=== PATIENT | male | born 1950 | race Caucasian/White ===

== ENCOUNTER 2017-05-16 18:01 | Emergency (ER) | payer MEDICARE, OTHER ==
[~2017-05-16] VITALS: Ht 182.9 cm; Wt 106.8 kg
[~2017-05-16 18:01] MED LIST: PREDNISONE 5MG.5 MG
--- OUTSIDE RECORDS SUMMARY | 2017-05-16 18:14 | External Medical Summary Rpt ---
Author Author KRISTI Bell, [employer] Organization [employer] Address Unknown Phone Unavailable
--- OUTSIDE RECORDS SUMMARY | 2017-05-16 18:14 | External Medical Summary Rpt | CCD ---
Author Author [employer] Organization [employer] Address Unknown Phone Unavailable Purpose Continuity of Care Document - through 2016
--- OUTSIDE RECORDS SUMMARY | 2017-05-16 18:14 | External Medical Summary Rpt | CCD ---
Author Author , KRISTI Organization [employer] Address Unknown Phone [email or web address] Providers Care Monotype Operator Name Role Phone Gregory Arellano III, MD, Gregory Hussein III, MD Purpose Continuity of Care Document - 02-21-2013 through 2016 Problems Code Diagnosis DOS Provider Status 883.0 883.0 OPEN 02-21-2013 Douglas WOUND OF [facility] E849.8 E849.8 02-21-[address] [facility] E920.8 E920.8 02-21-2013 Douglas ACC-CUTTING [facility] Allergies, Adverse Reactions, Alerts Type Allergy to substance Adverse Reaction to Substance Substance Reaction Severity NO KNOWN ALLERGIES Unknown Unknown Medications Na ND Rx Da Fi Fi Am Da Di Ph RX Ph St me C No te ll ll ou ys ag ar # ys at rm s nt no ma ic us Or Da si cy ia de te s n re d LI 63 08 0 No DO 32 -2 CA 30 1- Lo IN 20 20 ng E 11 13 er HC 0 L Ac 1% ti ve AL Vital Signs 02-21-2013 17:41 Name Value Interpretat Reference Comment ion Range Body 97.6 [degF] Temperature BP 95 mm[Hg] Diastolic BP Systolic 151 mm[Hg] Heart 68 /min Rate/Pulse O2% 96 % Respiratory 18 /min Rate 02-21-2013 17:36 Name Value Interpretat Reference Comment ion Range Body 97.6 [degF] Temperature BP 95 mm[Hg] Diastolic BP Systolic 151 mm[Hg] Heart 68 /min Rate/Pulse O2% 96 % Respiratory 18 /min Rate Procedures Procedure DOS Code Location Performer Comment CLOSURE 86.59 Gregory SKIN & EAlice SUBCUTANE Jovita GTZ III, MD Encounters Encounter Start End Date Code Location Performer Type Date Emergency UVALDO Hussein (ER) 3 16:43 3 17:47 [facility] Gregory Zuniga
--- OUTSIDE RECORDS SUMMARY | 2017-05-16 18:14 | External Medical Summary Rpt | CCD ---
Author Author , KRISTI Organization [employer] Address Unknown Phone [email or web address] Immunization Name Date Rout CVX Reac Dose Comm Prov Is Faci e tion ent ider Refu lity Give sed n Td 03-1 9 999 Hist H149 No H149 (kathie 0-19 oric lt), 97 al Info adso rmat rbed ion - Sour ce Unsp ecif ied
--- OUTSIDE RECORDS SUMMARY | 2017-05-16 18:14 | External Medical Summary Rpt | CCD ---
Author Author , KRISTI Organization K[employer]ST[employer] Address Unknown Phone [email or web address] Immunization Name Date Rout CVX Reac Dose Comm Prov Is Faci e tion ent ider Refu lity Give sed n Td 03-1 9 999 Hist H149 No H149 (kathie 0-19 oric lt), 97 al Info adso rmat rbed ion - Sour ce Unsp ecif ied
--- OUTSIDE RECORDS SUMMARY | 2017-05-16 18:14 | External Medical Summary Rpt | CCD ---
Author Author , KRISTI Organization [employer] Address Unknown Phone [email or web address] Care Team Providers Care Systems Development Manager Name Role Phone Gregory Arellano III, MD, Gregory Hussein III, MD Purpose Continuity of Care Document - 02-21-2013 through 2016 Problems Code Diagnosis DOS Provider Status 883.0 883.0 OPEN 02-21-2013 Douglas WOUND OF [facility] E849.8 E849.8 02-21-2013 Douglas ACCIDENT IN [facility] E920.8 E920.8 02-21-2013 Douglas ACC-CUTTING [facility] Allergies, Adverse Reactions, Alerts Type Allergy to [...] UVALDO Hussein (ER) 3 16:43 3 17:47 [facility] Gregory Zuniga
--- NOTE | 2017-05-16 19:03 | Urgent Treatment Center Report ---
History of Present Issue Date/Time Seen by Provider 05/16/17 1858 Visit Reason Pt arrived:Walked Presenting Problem:PT STATES HE HAS BEEN VOMITING WITH STOMACH BURNING Location if Accident: Onset of symptoms date/time:05/16/17 or onset unknown for: Have you (or family members/close friends) recently traveled outside the [place]? N If Yes, where/when: Have you had exposure to infectious disease within the past month? TB? Other? Specify: Patient states that he was recenly seen and treated for Sinus infection State that he was started on Augmentin State that he then was started on on Azithromycin also State that he has been having the Diarrhea and vomiting every since Tuesday State that he was not sure if the antibiotic upset his stomach and was making him have V/D or if he may have been exposed to the stomach virus by his grandson. States that just before he vomits he has a burning sensation then he vomits then feels a little better ALLERGIES Coded Allergies: No Known Allergies (05/16/17) Home Medications Reported Medications Prednisone (Prednisone 5MG) History Medical History General Angina: No KS: No Hypertension? No Hyperlipidemia? No CHF? No COPD? No Asthma? No CVA? No Seizures? No Diabetes? No GB Disease: No MRSA? No TB? No Cancer? No Immunization HX DT/Tetanus 1-4 YRS Surgical Hx Previous Surgery?Y Tonsils Social History Smoking Hx Smoker: Never Smoker Tobacco: No Alcohol Alcohol: Yes Review of Systems All Other Systems Reviewed and Negative Gastrointestinal diarrhea, nausea, vomiting Physical Exam Vital Signs Vital Signs Date Time Temp Pulse Resp B/P Pulse O2 O2 Flow FiO2 Ox Delivery Rate 05/16 1843 98.2 52 20 161/96 98 General Appearance normal appearance, WD/WN, no apparent distress, Aggitated Respiratory Status Yes: trachea midline, chest symmetrical, non tender chest. No: respiratory distress. Cardiovascular normal exam, regular rate/rhythm, no peripheral edema Gastrointestinal normal bowel sounds, normal exam, non tender, soft, no guarding , no rebound Neurologic alert, normal exam, oriented x 3 Medical Decision Making LABS/Meds/Orders Pt receiving controlled substance in ED? No Results/Orders Current Medication Orders Sig/Damaris Start time Last Medication Dose Route Stop Time Status Admin Multi-Ingredient GI 0 .STK-MED ONE 05/16 1918 DC Drug PO Multi-Ingredient GI 60 ML ONCE ONE 05/16 1915 DC 05/16 Drug PO 05/16 Ondansetron HCl 8 MG ONCE ONE 05/16 1845 DC 05/16 IM 05/16 Ondansetron HCl 0 .STK-MED ONE 05/16 1845 DC .ROUTE Progress [facility] Progress Notes Comment After Zofran and Gi [place] state that stomach feels much better no longer having the burning sensation or nausea Departure Departure Time of Disposition 1932 Disposition DC Home or Self Care(routine) Clinical Impression Primary Impression: Nausea and vomiting Qualifiers: Vomiting type: unspecified Vomiting Intractability: unspecified Qualified Code: R11.2 - Nausea with vomiting, unspecified Condition STABLE Referrals Tank ANNA,A.C. (Family): Tomorrow-Call Office Patient Instructions DI for Vomiting -- Adult, Nausea and Vomiting-Adult, Ondansetron Additional Instructions try very small amounts of water or suck on ice chips. diarrhea. children and infants should use products formulated for children, like oral rehydration solutions. Follow up with family doctor tomorrow Return if needed Discharge Counseling Counseled pt/family regarding diagnosis, test results, medications/RX, home care, follow up needs Prescriptions Current Visit Scripts Ondansetron (Zofran 4MG Odt) 4 MG PO Q6HP PRN NAUSEA AND VOMITING #20 TAB at 1935
[2017-05-16] MEDS ORDERED: ZOFRAN ODT4 MG PO (19:34)
[2017-05-16 19:38] VITALS: BP 158/77
== END 2017-05-16 19:39 | disposition home or self-care (01) ==
LOC: UTC 18:01
DX: R11.2 Nausea with vomiting, unspecified (principal); Z79.52 Long term (current) use of systemic steroids
CPT/HCPCS: J2405